=== PATIENT | male | born 1960 | race Caucasian/White ===

== ENCOUNTER → 2017-10-30 | Outpatient (CLI) | payer OTHER ==
[2017-10-30] MEDS: IOHEXOL 180 MG/ML 10 ML VIAL. EPI (11:10)
== END | disposition home or self-care (01) ==
LOC: RAD 10:01
DX: M47.897 Other spondylosis, lumbosacral region (principal); M48.061 Spinal stenosis, lumbar region without neurogenic claudication; M51.26 Other intervertebral disc displacement, lumbar region
CPT/HCPCS: 72132; 72265; Q9965

== ENCOUNTER → 2017-11-26 | Outpatient (CLI) | payer OTHER ==
[2017-11-26 16:04] LABS: ADD MAN DIFF? NO
[2017-11-26 16:07] LABS: BASO % 1 % (0-3); EOS # 0.2 x10^3/uL (0.0-0.7); EOS % 5 % (0-3); HEMATOCRIT 35.6 % (39.0-53.0); HEMOGLOBIN 12.2 g/dL (13.0-17.5); LYMPH # 1.5 x10^3/uL (1.0-4.8); LYMPH % 39 % (24-48); MEAN CORPUSCULAR HEMOGLOBIN 29 pg (25-35); MEAN CORPUSCULAR HGB CONC 34 g/dL (31-37); MEAN CORPUSCULAR VOLUME 86 fL (79-100); MONO # 0.3 x10^3/uL (0.0-1.1); MONO % 8 % (0-9); NEUT # 1.8 x10^3uL (1.8-7.7); NEUT % 47 % (31-73); PLATELET COUNT 189 x10^3/uL (140-400); RED BLOOD COUNT 4.16 x10^6/uL (4.30-5.70); RED CELL DISTRIBUTION WIDTH 15.8 % (11.5-14.5); WHITE BLOOD COUNT 3.9 x10^3/uL (4.0-11.0)
[2017-11-26 16:29] LABS: ALBUMIN 3.6 g/dL (3.4-5.0); ALBUMIN/GLOBULIN RATIO 0.9 (1.0-1.7); ALK PHOS 122 U/L (46-116); ALT (SGPT) 53 U/L (16-63); ANION GAP 8 (6-14); AST (SGOT) 32 U/L (15-37); BLOOD UREA NITROGEN 20 mg/dL (8-26); BUN/CREATININE RATIO 22 (6-20); CALCIUM 8.6 mg/dL (8.5-10.1); CARBON DIOXIDE 29 mmol/L (21-32); CHLORIDE 104 mmol/L (98-107); CREATININE 0.9 mg/dL (0.7-1.3); GFR 86.7; GLUCOSE 99 mg/dL (70-99); POTASSIUM 4.4 mmol/L (3.5-5.1); SODIUM 141 mmol/L (136-145); TOTAL BILIRUBIN 0.6 mg/dL (0.2-1.0); TOTAL PROTEIN 7.7 g/dL (6.4-8.2)
[2017-11-27 22:17] LABS: MRSA BY PCR Negative (Negative)
== END | disposition home or self-care (01) ==
LOC: SURGPAT 13:32
DX: Z01.818 Encounter for other preprocedural examination (principal); M54.16 Radiculopathy, lumbar region; M48.061 Spinal stenosis, lumbar region without neurogenic claudication
CPT/HCPCS: 36415; 80053; 85025; 87641

== ENCOUNTER 2017-12-06 08:13 | Observation (INO) | payer OTHER ==
[~2017-12-06 08:13] MED LIST: LIDOCAINE 1% PF 2 ML VIAL. ID; MORPHINE SULFATE 4 MG/ML DISP.SYRIN. IV; ONDANSETRON PF 4 MG/2 ML VIAL. IV; PROCHLORPERAZINE 10 MG/2 ML VIAL. IV; fentaNYL PF VIAL 100 MCG/2 ML VIAL IV
[2017-12-06] MEDS: IV RINGERS,LACTATED 1000ML 1,000 ML IV (09:00)
[2017-12-06] MEDS ORDERED: DEXAMETHASONE SOD PHOS 20 MG/5 ML VIAL. (09:14)
[2017-12-06] MEDS ORDERED: LIDOCAINE 2% PF Vial for OR 5 ML VIAL. (09:14)
[2017-12-06] MEDS ORDERED: PROPOFOL 50 ML IV ×2 (09:14→11:11)
[2017-12-06] MEDS ORDERED: MIDAZOLAM HCL/PF 2 MG/2 ML VIAL. (09:14)
[2017-12-06] MEDS ORDERED: PROPOFOL 20 ML IV ×2 (09:14→13:15)
[2017-12-06] MEDS ORDERED: ONDANSETRON PF 4 MG/2 ML VIAL. (09:14)
[2017-12-06] MEDS ORDERED: fentaNYL PF VIAL 100 MCG/2 ML VIAL (09:15)
[2017-12-06] MEDS ORDERED: ROCURONIUM 50 MG/5 ML VIAL. (10:09)
[2017-12-06] MEDS ORDERED: REMIFENTANIL 2 MG VIAL. IV (10:09)
[2017-12-06] MEDS ORDERED: GLYCOPYRROLATE 1 MG/5 ML VIAL. (10:41)
[2017-12-06] MEDS ORDERED: NEOSTIGMINE METHYLSULFATE 5 MG/5 ML SYRINGE. (10:41)
[2017-12-06] MEDS ORDERED: ePHEDrine PF IN SALINE 50 MG/5 ML DISP.SYRIN IV (10:42)
[2017-12-06] MEDS ORDERED: DESFLURANE > 120 MINUTES IH (11:11)
[2017-12-06] MEDS: BUPIVAC MPF-EPI 0.5%-1:200000 30 ML VIAL. INJ (11:15)
[2017-12-06] MEDS: GELATIN SPONGE SIZE 100. (11:15)
[2017-12-06] MEDS: THROMBIN TOPICAL 20,000 UNIT SPRAY.SYRN KIT TP (11:15)
[2017-12-06] MEDS: BACITRACIN 50,000 UNIT in IV NORMAL SALINE 1000ML BAG 1,000 ML IRR (11:15)
[2017-12-06] MEDS: KETOROLAC 60 MG/2 ML INJ FOR OR. (11:15)
[2017-12-06] MEDS ORDERED: ceFAZolin 2GM PREMIX 2 GM/50 ML BAG IV (12:00)
[2017-12-06] MEDS ORDERED: REMIFENTANIL 1 MG VIAL. IV (12:58)
[2017-12-06] MEDS ORDERED: HYDROcodone/APAP 10/325 1 TAB TABLET PO (14:30)
[2017-12-06] MEDS ORDERED: NITROGLYCERIN SUBLINGUAL 0.4 MG BOTTLE OF 25. SL (14:30)
[2017-12-06] MEDS: fentaNYL PF VIAL 100 MCG/2 ML VIAL IV ×2 (14:56→15:07)
[2017-12-06] MEDS ORDERED: ACETAMINOPHEN 325 MG TABLET. PO (15:30)
[2017-12-06] MEDS ORDERED: fentaNYL PF VIAL 100 MCG/2 ML VIAL IV ×2 (15:30)
[2017-12-06] MEDS ORDERED: 0.9 % SODIUM CHLORIDE 10 ML DISP.SYRIN. IV (15:30)
[2017-12-06] MEDS ORDERED: ONDANSETRON PF 4 MG/2 ML VIAL. IV (15:30)
[2017-12-06] MEDS ORDERED: CALCIUM CARBONATE 500 MG TAB.CHEW PO (15:30)
[2017-12-06] MEDS ORDERED: diphenhydrAMINE 50 MG/ML VIAL IV (15:30)
[2017-12-06] MEDS ORDERED: MAG HYDROX/ALUMINUM HYD/SIMETH 30 ML ORAL.SUSP PO (15:30)
[2017-12-06] MEDS ORDERED: diphenhydrAMINE HCL 25 MG CAPSULE PO (15:30)
[2017-12-06] MEDS ORDERED: ZOLPIDEM 5 MG TABLET. PO (15:30)
[2017-12-06] MEDS ORDERED: MAGNESIUM HYDROXIDE 2,400 MG/30 ML ORAL.SUSP. PO (15:30)
[2017-12-06] MEDS ORDERED: ONDANSETRON ODT 4 MG TAB.RAPDIS. PO (16:15)
[2017-12-06] MEDS: CARVEDILOL 12.5 MG TABLET. PO (17:30)
[2017-12-06] MEDS: HYDROcodone/APAP 10/325 1 TAB TABLET PO (17:33)
[2017-12-06] MEDS: POTASSIUM CL 20MEQ D5-0.45NACL 1,000 ML IV (19:25)
[2017-12-06] MEDS: SENNOSIDES 8.6 MG TABLET PO (20:30)
[2017-12-06] MEDS: DOCUSATE SODIUM 100 MG CAPSULE. PO (20:30)
[2017-12-06] MEDS: CYCLOBENZAPRINE 10 MG TABLET. PO (20:30)
[2017-12-06] MEDS: ATORVASTATIN CALCIUM 40 MG TABLET. PO (20:30)
[2017-12-07] MEDS: POTASSIUM CL 20MEQ D5-0.45NACL 1,000 ML IV (04:43)
[2017-12-07] MEDS: LEVOTHYROXINE 100 MCG TABLET PO (06:25)
[2017-12-07] MEDS: PANTOPRAZOLE 40 MG TABLET.DR. PO (06:25)
[2017-12-07] MEDS: HYDROcodone/APAP 10/325 1 TAB TABLET PO ×2 (06:29→11:38)
[2017-12-07] MEDS: ASPIRIN CHEWABLE 81 MG TABLET. PO (08:24)
[2017-12-07] MEDS: DOCUSATE SODIUM 100 MG CAPSULE. PO (08:24)
[2017-12-07] MEDS: CYCLOBENZAPRINE 10 MG TABLET. PO (08:25)
[2017-12-07] MEDS: DULoxetine HCL 30 MG CAPSULE.DR PO (08:25)
[2017-12-07] MEDS: SENNOSIDES 8.6 MG TABLET PO (08:25)
[2017-12-07] MEDS: FUROSEMIDE 20 MG TABLET PO (08:25)
[2017-12-07] MEDS: CARVEDILOL 12.5 MG TABLET. PO (08:26)
[2017-12-07] MEDS: amLODIPine BESYLATE 2.5 MG TABLET PO (08:26)
[2017-12-07] MEDS: POLYETHYLENE GLYCOL 3350 17 GM PACKET. PO (08:29)
== END 2017-12-07 12:00 | disposition home or self-care (01) ==
LOC: SURG 08:13 → 4 SOUTHEST 15:16
DX: M48.061 Spinal stenosis, lumbar region without neurogenic claudication (principal); M48.07 Spinal stenosis, lumbosacral region; M54.17 Radiculopathy, lumbosacral region; Z79.899 Other long term (current) drug therapy
CPT/HCPCS: 63030; 76000; 97161-GP; A7015; G0378; G0379; J0690; J1100; J1885; J2250; J2405; J2704; J2710; J3010; J3490; J7030; J7120